=== PATIENT | male | born 1970 | race Caucasian/White ===

== ENCOUNTER 2018-06-27 16:07 | Emergency (ER) | payer OTHER ==
--- NOTE | 2018-06-27 17:15 | UC ---
UC General HPI - HPI Summary HPI Summary: pt c/o waking up all week w/ night sweats and feeling feverish associated with generalized itching. He does not complain of a rash or hives as he scratches.. Denies nausea, vomitting or diarrhea, dysuria, flu like symptoms or lymph node swelling. States he's staying hydrated more than normal since he feels thirsty all the time. Tried benadryl at onset of sxs w/ no improvement in itch. Denies new med/food/detergent. Was seen at ER in [facility] for same sxs- dx gastritis and labwork done. PCP Piotr CHAKRABORTY MD in [place]. 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 At some point had bronchial lavage but TBC was ruled out. Hx of tobacco use for the past 30 years , has quit several times. Hx of HTN but taken off meds because he is a slow metabolizer and medication levels were building up to toxic levels in the past and BP was controlled with lifestyle modifications. - History of Current Complaint Chief Complaint: UCGeneralIllness Stated Complaint: SWEATING/ITCHY Time Seen by Provider: 06/27/18 17:06 Hx Obtained From: Patient Onset/Duration: Sudden Onset, Lasting Weeks Timing: Intermittent Episodes Lasting: - hours Onset Severity: Severe Current Severity: Severe Pain Intensity: 0 - Allergy/Home Medications Allergies/Adverse Reactions: Allergies Allergy/AdvReac Type Severity Reaction Status Date / Time opiates Allergy Vomiting Uncoded 06/27/18 16:30 Home Medications: Home Medications NK [No Home Medications Reported] 06/27/18 [History Confirmed 06/27/18] PMH/Surg Hx/FS Hx/Imm Hx - Additional Past Medical History Additional PMH: Slow metabolizer of drugs Previously Healthy: Yes Cardiovascular History: Hypertension - Surgical History Surgical History: Yes Surgery Procedure, Year, and Place: LEFT shoulder x2. c6-c7 fusion. hernia. tonsils - Family History Known Family History: Positive: Diabetes, Other - lung cancer in both parents - Social History Alcohol Use: None Substance Use Type: None Smoking Status (MU): Heavy Every Day Tobacco Smoker Type: Cigarettes Amount Used/How Often: 1/2 PPD - Immunization History Most Recent Tetanus Shot: unsure Review of Systems Constitutional: Chills, Other - sweats, weight loss Skin: Other - itching All Other Systems Reviewed And Are Negative: Yes Physical Exam Triage Information Reviewed: Yes Appearance: Well-Appearing, No Pain Distress, Well-Nourished Vital Signs: Initial Vital Signs Temp 98.7 F 06/27/18 16:27 Pulse 83 06/27/18 16:27 Resp 15 06/27/18 16:27 BP 175/101 06/27/18 16:27 Pulse Ox 100 06/27/18 16:27 Vital Signs Reviewed: Yes Eyes: Positive: Conjunctiva Clear ENT: Positive: Hearing grossly normal, Pharynx normal, TMs normal, Uvula midline Neck: Positive: Supple, Nontender Respiratory: Positive: Chest non-tender, Lungs clear, Normal breath sounds, No respiratory distress Cardiovascular: Positive: RRR, No Murmur, Pulses Normal, Brisk Capillary Refill Abdomen Description: Positive: Nontender, No Organomegaly, Soft Bowel Sounds: Positive: Present Musculoskeletal: Positive: Strength Intact, ROM Intact, No Edema Neurological: Positive: Alert, Muscle Tone Normal Psychological: Positive: Age Appropriate Behavior Skin Exam: Normal Course/Dx - Course Course Of Treatment: chest xray was negative, glucose was 93, lab test results from [facility] ER reviewed, with marginal elevation of WBC at 11.3, LFT and KFT were wnl. Follow up with PCP for monitoring and evaluation of symptoms - Differential Dx - Multi-Symptom Provider Diagnoses: Generalized pruritus. Nocturnal diaphoresis Discharge - Sign-Out/Discharge Documenting (check all that apply): Patient Departure All imaging exams completed and their final reports reviewed: Yes - Discharge Plan Condition: Stable Disposition: HOME Patient Education Materials: Itchy Skin (ED) Referrals: Piotr Chakraborty MD [Primary Care Provider] - - Billing Disposition and Condition Condition: STABLE Disposition: Home
--- NOTE | 2018-06-27 18:23 | RAD ---
INDICATION: Night sweats, weight loss and generalized pruritus COMPARISON: None TECHNIQUE: PA and lateral views of the chest were obtained. FINDINGS: The heart and mediastinum are normal in size and contour. The lungs are grossly clear. There is no evidence of large pleural effusion. Visualized bones are normal for the patient's age. There is no radiographic evidence of free air beneath the diaphragm IMPRESSION: No radiographic evidence of acute cardiopulmonary disease.
== END 2018-06-27 18:54 | disposition home or self-care (01) ==
LOC: UCCORT 16:07
CPT/HCPCS: 71046; 99201; G0463